=== PATIENT | female | born 1970 | race Caucasian/White ===

== ENCOUNTER → 2016-03-08 | Outpatient (CLI) | payer OTHER ==
--- NOTE | 2016-03-08 12:18 | REPMRS ---
Patient History The patient states she had a clinical breast exam in 2015.Patient had first child at age 38. No known family history of cancer. Digital Mammo Screening Bilat: March 08, 2016 - Exam #: [id number] Bilateral CC and MLO view(s) were taken. Technologist: Yvette Johnson, Technologist No prior studies available for comparison. FINDINGS: There are scattered fibroglandular densities. There is no evidence of dominant mass, architectural distortion, or clustered microcalcification typical of malignancy. ASSESSMENT: BI-RADS/ACR category 1 mammogram. Negative. Recommendation Routine screening mammogram of both breasts in 1 year (for women over age 40). This mammogram was interpreted with the aid of an FDA-approved computer-aided dectection system. Electronically Signed By: Alexandro Cruz MD 03/08/16 [id number]
== END ==
LOC: M RAD 11:34
PROVIDERS: ATTEND Advanced Practice Midwife
DX: Z12.31 Encounter for screening mammogram for malignant neoplasm of breast (principal)

== ENCOUNTER → 2016-07-04 | Outpatient (REF) | payer OTHER | LOC: M LAB REF 20:03 | PROVIDERS: ATTEND Physician Assistant | DX: N39.0 Urinary tract infection, site not specified (principal) ==

== ENCOUNTER → 2016-11-28 | Outpatient (CLI) | payer OTHER ==
--- NOTE | 2016-11-29 03:38 | REP ---
Clinical: Pelvic pain and abnormal bleeding . Technique: Transabdominal pelvic ultrasound followed by transvaginal examination for better evaluation of the endometrium and adnexa with color Doppler evaluation of the ovaries. Findings: Bladder is unremarkable and measures 10.0 x 6.0 x 8.0 cm. Normal anteverted uterus measures 7.1 x 3.6 x 4.2 cm . The endometrial complex measures 6.2 mm thickness. No discrete uterine or endometrial abnormalities are appreciated. Right ovary is normal in appearance and vascularity without evidence for torsion. Right ovary measures 2.5 x 1.9 x 2.2 cm with 1.4 cm dominant follicle ; R I = 0.59 . Left ovary not visualized. No pelvic fluid or adnexal mass lesion . Impression: 1. Essentially normal pelvic ultrasound. Left ovary not visualized. Signed by Tony White MD 11/29/2016 03:29 A
== END ==
LOC: M RAD 16:38
PROVIDERS: ATTEND Specialist
DX: N93.8 Other specified abnormal uterine and vaginal bleeding (principal)

== ENCOUNTER → 2017-01-05 | Outpatient (REF) | payer OTHER | LOC: M LAB REF 16:21 | PROVIDERS: ATTEND Physician Assistant | DX: N39.0 Urinary tract infection, site not specified (principal) ==

== ENCOUNTER → 2017-01-18 | Outpatient (REF) | payer OTHER | LOC: M LAB REF 19:12 | PROVIDERS: ATTEND Physician Assistant | DX: R30.0 Dysuria (principal) ==

== ENCOUNTER → 2017-02-17 | Outpatient (REF) | payer OTHER | LOC: M LAB REF 13:50 | DX: N39.0 Urinary tract infection, site not specified (principal) ==

== ENCOUNTER → 2017-04-11 | Outpatient (REF) | payer OTHER ==
[2017-04-11 16:15] LABS: CHLAMYDIA DNA AMPLIFICATION NEGATIVE (NEGATIVE); GC DNA AMPLIFICATION NEGATIVE (NEGATIVE)
== END ==
LOC: M LAB REF 12:59
DX: Z11.3 Encounter for screening for infections with a predominantly sexual mode of transmission (principal)

== ENCOUNTER → 2017-04-11 | Outpatient (CLI) | payer OTHER ==
[2017-04-12 10:58] LABS: HEPATITIS B SURFACE ANTIGEN NEGATIVE (NEGATIVE)
[2017-04-12 11:11] LABS: HEPATITIS B CORE ANTIBODY IGM NEGATIVE (NEGATIVE)
[2017-04-12 11:23] LABS: HIV 1&2 SCREEN CENTAUR NEGATIVE (NEGATIVE)
[2017-04-12 11:24] LABS: HEPATITIS A ANTIBODY IGM NEGATIVE (NEGATIVE)
[2017-04-14 00:06] LABS: HSV IgM TYPES 1&2 <0.91 Ratio (0.00-0.90); HSV TYPE I IgG SPECIFIC <0.91 index (0.00-0.90); HSV TYPE II IgG SPECIFIC <0.91 index (0.00-0.90)
== END ==
LOC: M SMT 10:56
DX: Z11.3 Encounter for screening for infections with a predominantly sexual mode of transmission (principal)
CPT/HCPCS: 87340

== ENCOUNTER → 2018-03-07 | Outpatient (REF) | payer OTHER ==
[2018-03-07 12:11] LABS: ALBUMIN 3.5 GM/DL (3.2-5.2); ALT/SGPT 22 U/L (12-78); BILIRUBIN,TOTAL 0.2 MG/DL (0.2-1.0); BLOOD UREA NITROGEN 18 MG/DL (7-18); CALCIUM LEVEL 8.6 MG/DL (8.5-10.1); CARBON DIOXIDE LEVEL 28 MEQ/L (21-32); CHLORIDE LEVEL 106 MEQ/L (98-107); CHOLESTEROL LEVEL 237 MG/DL (<200); CHOLESTEROL RISK RATIO 3.246 (<5); CREATININE FOR GFR 0.74 MG/DL (0.55-1.30); GLOMERULAR FILTRATION RATE > 60.0 (>58); GLUCOSE, FASTING 43 MG/DL (70-100); HDL CHOLESTEROL 73 MG/DL (>40); IRON (FE) 58 UG/DL (50-170); LDL CHOLESTEROL 133 MG/DL (<100); NON-HDL-C 164 MG/DL; POTASSIUM SERUM 4.2 MEQ/L (3.5-5.1); SODIUM LEVEL 140 MEQ/L (136-145); TRIGLYCERIDES LEVEL 157 MG/DL (<150)
[2018-03-07 12:17] LABS: TOTAL 25(OH) VITAMIN D 15.9 NG/ML (30.0-100.0)
[2018-03-07 12:18] LABS: VITAMIN B12 LEVEL 674 PG/ML (247-911)
[2018-03-07 12:27] LABS: HEMOGLOBIN A1c 5.7 %
[2018-03-07 12:57] LABS: HIV 1&2 SCREEN CENTAUR NEGATIVE (NEGATIVE)
[2018-03-07 13:11] LABS: CHLAMYDIA DNA AMPLIFICATION NEGATIVE (NEGATIVE); GC DNA AMPLIFICATION NEGATIVE (NEGATIVE)
[2018-03-12 00:06] LABS: VITAMIN A, RETINOL LEVEL 45.3 ug/dL (20.1-62.0); VITAMIN E(ALPHA TOCOPHEROL) 11.9 mg/L (7.0-25.1); VITAMIN E(GAMMA TOCOPHEROL) 1.6 mg/L (0.5-5.5); VITAMIN K1 0.4 ng/mL (0.13-1.88)
== END ==
LOC: M SFHCPLAZ 09:38
PROVIDERS: ATTEND Family Medicine
DX: Z20.2 Contact with and (suspected) exposure to infections with a predominantly sexual mode of transmission (principal); Z98.84 Bariatric surgery status; Z13.1 Encounter for screening for diabetes mellitus; Z13.220 Encounter for screening for lipoid disorders

== ENCOUNTER → 2018-06-21 | Outpatient (REF) | payer OTHER ==
[2018-06-27 14:11] LABS: HPV HYBRID CAPTURE II Positive (Negative)
== END ==
LOC: M LAB REF 16:19
PROVIDERS: ATTEND Advanced Practice Midwife
DX: Z12.4 Encounter for screening for malignant neoplasm of cervix (principal)

== ENCOUNTER → 2018-06-21 | Outpatient (REF) | payer OTHER ==
[2018-06-22 14:48] LABS: CHLAMYDIA DNA AMPLIFICATION NEGATIVE (NEGATIVE); GC DNA AMPLIFICATION NEGATIVE (NEGATIVE)
== END ==
LOC: M LAB REF 12:46
PROVIDERS: ATTEND Advanced Practice Midwife
DX: Z11.3 Encounter for screening for infections with a predominantly sexual mode of transmission (principal)

== ENCOUNTER → 2018-07-02 | Outpatient (CLI) | payer OTHER ==
[2018-07-02 17:18] LABS: HCG, SERUM QUALITATIVE NEGATIVE (NEGATIVE)
[2018-07-02 17:35] LABS: FOLLICLE STIMULATING HORMONE 10.5 mIU/mL; FREE T4 0.71 NG/DL (0.76-1.46); LUTEINIZING HORMONE 8.6 mIU/mL
--- NOTE | 2018-07-03 03:53 | REP ---
Clinical: Menorrhagia . Technique: Transabdominal pelvic ultrasound with color Doppler evaluation of the ovaries. Comparison: 11/28/2016 Findings: Bladder is unremarkable and measures approximately 7.5 x 4.0 x 4.5 cm . Normal anteverted uterus measures 9.6 x 4.1 x 5.3 cm . The endometrial complex measures 8.4 mm thickness. No discrete uterine or endometrial abnormalities are appreciated. Bilateral ovaries are normal in appearance and vascularity without evidence for torsion. Right ovary measures 2.8 x 1.6 x 2.3 cm with 2.0 cm physiologic cyst ; R I = 0.58 . Left ovary measures 3.5 x 1.9 x 2.3 cm ; R I = 0.63 . No pelvic fluid or adnexal mass lesion . Impression: 1. Relatively normal anteverted uterus without obvious abnormality. 2. 2.0 cm presumed physiologic right ovarian cyst. If warranted consider reevaluation in 4-6 weeks to evaluate for resolution. Electronically Signed by Tony White MD 07/03/2018 03:44 A
--- NOTE | 2018-07-03 08:37 | REPMRS ---
Patient History No known family history of cancer.The patient states she had a clinical breast exam in June 2018. denied. Digital Mammo Screening Bilat: July 02, 2018 - Exam #: [id number] Bilateral CC and MLO view(s) were taken. Technologist: Shobha Mei, Technologist Prior study comparison: March 08, 2016, bilateral digital mammo screening bilat performed at [facility]. FINDINGS: There are scattered fibroglandular densities. There has been no change in the appearance of the mammogram from the prior studies. There is a mild amount of scattered fibroglandular density which is fairly symmetric. There is no interval development of dominant mass, architectural distortion, or clustered microcalcification suggestive of malignancy. 3-D tomosynthesis shows no additional findings. Assessment: BI-RADS/ACR category 1 mammogram. Negative Mammogram. Recommendation Routine screening mammogram of both breasts in 1 year (for women over age 40). This patient's Lifetime Breast Cancer RIsk is estimated at 13.0 %. This mammogram was interpreted with the aid of an FDA-approved computer-aided dectection system. Electronically Signed By: Alexandro Cruz MD 07/03/18 0836
== END ==
LOC: M RAD 16:15
PROVIDERS: ATTEND Advanced Practice Midwife
DX: Z12.31 Encounter for screening mammogram for malignant neoplasm of breast (principal); N92.4 Excessive bleeding in the premenopausal period

== ENCOUNTER → 2018-07-30 | Outpatient (REF) | payer OTHER | LOC: M LAB REF 19:55 | PROVIDERS: ATTEND Advanced Practice Midwife | DX: N92.4 Excessive bleeding in the premenopausal period (principal) ==

== ENCOUNTER → 2019-07-19 | Outpatient (CLI) | payer OTHER ==
--- NOTE | 2019-07-19 11:04 | REPMRS ---
Patient History The patient states she had a clinical breast exam in June 2019. No known family history of cancer. Digital Woman Screen Mammo: July 19, 2019 - Exam #: [id number] Bilateral CC and MLO view(s) were taken. Technologist: Lupe Chun Technologist Prior study comparison: July 02, 2018, bilateral digital mammo screening bilat, performed at [facility]. March 08, 2016, bilateral digital mammo screening bilat, performed at [facility]. FINDINGS: There are scattered fibroglandular densities. The Volpara volumetric breast density category is:B. There has been no change in the appearance of the mammogram from the prior studies. There is a mild amount of scattered fibroglandular density which is fairly symmetric. There is no interval development of dominant mass, architectural distortion, or grouped microcalcification suggestive of malignancy. 3-D tomosynthesis shows no additional findings. Assessment: BI-RADS/ACR category 1 mammogram. Negative Mammogram. Recommendation Routine screening mammogram of both breasts in 1 year (for women over age 40). This patient's Lifetime Breast Cancer Risk is estimated at 12.9 %. This mammogram was interpreted with the aid of an FDA-approved computer-aided dectection system. Electronically Signed By: Alexandro Cruz MD 07/19/19 [id number]
== END ==
LOC: M WHC 08:36
PROVIDERS: ATTEND Nurse Practitioner Women's Health
DX: Z12.31 Encounter for screening mammogram for malignant neoplasm of breast (principal)

== ENCOUNTER → 2019-07-19 | Outpatient (REF) | payer OTHER | LOC: M SFHCWAGY 17:41 | PROVIDERS: ATTEND Nurse Practitioner Women's Health | DX: Z12.4 Encounter for screening for malignant neoplasm of cervix (principal) ==

== ENCOUNTER → 2019-09-30 | Outpatient (REF) | payer OTHER ==
[2019-11-13 16:10] LABS: ALBUMIN 3.5 GM/DL (3.2-5.2); ALT/SGPT 22 U/L (12-78); BILIRUBIN,TOTAL 0.2 MG/DL (0.2-1.0); BLOOD UREA NITROGEN 18 MG/DL (7-18); CARBON DIOXIDE LEVEL 28 MEQ/L (21-32); CHLORIDE LEVEL 110 MEQ/L (98-107); CHOLESTEROL LEVEL 275 MG/DL (<200); CREATININE FOR GFR 1.03 MG/DL (0.55-1.30); GLOMERULAR FILTRATION RATE > 60.0 (>58); GLUCOSE, FASTING 91 MG/DL (70-100); HDL CHOLESTEROL 65 MG/DL (>40); LDL CHOLESTEROL 168 MG/DL (<100); NON-HDL-C 210 MG/DL; POTASSIUM SERUM 4.8 MEQ/L (3.5-5.1); SODIUM LEVEL 143 MEQ/L (136-145); TOTAL PROTEIN 7.4 GM/DL (6.4-8.2); TRIGLYCERIDES LEVEL 211 MG/DL (<150)
[2019-11-13 16:11] LABS: HEMOGLOBIN A1c 5.5 %
== END ==
LOC: M SFHCPLAZ 12:05
PROVIDERS: ATTEND Physician Assistant
DX: Z13.29 Encounter for screening for other suspected endocrine disorder (principal); Z13.220 Encounter for screening for lipoid disorders

== ENCOUNTER → 2019-10-17 | Outpatient (REF) | payer OTHER | LOC: M WUC 19:04 | PROVIDERS: ATTEND Physician Assistant | DX: R30.0 Dysuria (principal) ==

== ENCOUNTER → 2020-02-20 | Outpatient (CLI) | payer OTHER ==
[2020-02-20 15:57] LABS: APPEARANCE, URINE HAZY (CLEAR); BACTERIA, URINE AUTO NEGATIVE (NEGATIVE); BILIRUBIN, URINE AUTO NEGATIVE (NEGATIVE); BLOOD, URINE BLOOD NEGATIVE (NEGATIVE); COLOR, URINE YELLOW (YELLOW); GLUCOSE, URINE (UA) AUTO NEGATIVE (NEGATIVE); KETONE, URINE AUTO TRACE mg/dL (NEGATIVE); LEUKOCYTE ESTERASE, URINE AUTO NEGATIVE (NEGATIVE); MUCUS, URINE SMALL (NEGATIVE); NITRITE, URINE AUTO NEGATIVE (NEGATIVE); PROTEIN, URINE AUTO NEGATIVE (NEGATIVE); RBC, URINE AUTO 2 /HPF (0-3); SQUAMOUS EPITHELIAL CELL UR AU 7 /HPF (0-6); UROBILINOGEN, URINE AUTO 0.2 mg/dL (0.0-2.0); WBC, URINE AUTO 2 /HPF (0-3)
[2020-02-20 16:03] LABS: BASO % 0.6 % (0.0-1.0); EOS # 0.2 10^3/uL (0.0-0.5); EOS % 2.7 % (0.0-3.0); HEMATOCRIT 40.3 % (36.0-47.0); HEMOGLOBIN 12.5 g/dl (12.0-15.5); LYMPH # 2.4 10^3/uL (1.5-5.0); MEAN CORPUSCULAR HEMOGLOBIN 28.8 pg (27.0-33.0); MEAN CORPUSCULAR VOLUME 92.9 fl (80.0-96.0); MONO # 0.5 10^3/uL (0.0-0.8); MONO % 7.6 % (0.0-5.0); NEUTROPHILS # 3.5 10^3/uL (1.5-8.5); NEUTROPHILS % 52.8 % (36.0-66.0); PLATELET COUNT, AUTOMATED 335 10^3/uL (150-450); RED BLOOD COUNT 4.34 10^6/uL (4.00-5.40); WHITE BLOOD COUNT 6.6 10^3/uL (4.0-10.0)
[2020-02-20 16:34] LABS: CREATININE,RANDOM URINE 90.8 MG/DL
[2020-02-20 16:36] LABS: ALBUMIN 3.5 GM/DL (3.2-5.2); ALT/SGPT 34 U/L (12-78); BILIRUBIN,TOTAL 0.2 MG/DL (0.2-1.0); BLOOD UREA NITROGEN 24 MG/DL (7-18); CALCIUM LEVEL 8.9 MG/DL (8.5-10.1); CARBON DIOXIDE LEVEL 28 MEQ/L (21-32); CHLORIDE LEVEL 106 MEQ/L (98-107); CHOLESTEROL LEVEL 187 MG/DL (<200); CHOLESTEROL RISK RATIO 2.968 (<5); CREATININE FOR GFR 0.75 MG/DL (0.55-1.30); GLOMERULAR FILTRATION RATE > 60.0 (>58); GLUCOSE, FASTING 85 MG/DL (70-100); HDL CHOLESTEROL 63 MG/DL (>40); LDL CHOLESTEROL 106 MG/DL (<100); NON-HDL-C 124 MG/DL; POTASSIUM SERUM 4.2 MEQ/L (3.5-5.1); SODIUM LEVEL 139 MEQ/L (136-145); TOTAL PROTEIN 6.8 GM/DL (6.4-8.2); TRIGLYCERIDES LEVEL 88 MG/DL (<150)
[2020-02-20 16:57] LABS: HEMOGLOBIN A1c 5.5 %
== END ==
LOC: M WUC 14:14
PROVIDERS: ATTEND Nurse Practitioner Family
DX: Z52.4 Kidney donor (principal)

== ENCOUNTER → 2020-02-23 | Outpatient (REF) | payer OTHER ==
[2020-02-24 09:57] LABS: MALB URINE SIEMENS < 5.0 MG/L; URINE TOTAL PROTEIN 10.7 MG/DL (0-12)
[2020-02-24 19:48] LABS: MAU 24HR URINE 6.2 MG/24HR (0.0-30.0); MAU/MINUTE 4.3 MCG/MIN (0.0-20.0); TOTAL PROTEIN 24 HOUR URINE 133.7 MG/24HR (50-150); TOTAL VOLUME, URINE 1250 ML
== END ==
LOC: M LAB REF 02-22 08:45
PROVIDERS: ATTEND Nurse Practitioner Family
DX: Z52.4 Kidney donor (principal)

== ENCOUNTER → 2020-08-24 | Outpatient (REF) | payer OTHER | LOC: M LAB REF 19:07 | PROVIDERS: ATTEND Physician Assistant | DX: N39.0 Urinary tract infection, site not specified (principal) ==

== ENCOUNTER → 2020-11-03 | Outpatient (CLI) | payer OTHER ==
[2020-11-03 10:44] LABS: HEMATOCRIT 43.5 % (36.0-47.0); HEMOGLOBIN 14.4 g/dl (12.0-15.5); MEAN CORPUSCULAR HGB CONC 33.1 g/dl (32.0-36.5); MEAN CORPUSCULAR VOLUME 99.8 fl (80.0-96.0); PLATELET COUNT, AUTOMATED 269 10^3/uL (150-450); RED BLOOD COUNT 4.36 10^6/uL (4.00-5.40); WHITE BLOOD COUNT 5.9 10^3/uL (4.0-10.0)
[2020-11-03 11:20] LABS: ALBUMIN 3.3 GM/DL (3.2-5.2); ALT/SGPT 28 U/L (12-78); BILIRUBIN,TOTAL 0.4 MG/DL (0.2-1.0); BLOOD UREA NITROGEN 21 MG/DL (7-18); CALCIUM LEVEL 8.6 MG/DL (8.5-10.1); CARBON DIOXIDE LEVEL 29 MEQ/L (21-32); CHLORIDE LEVEL 108 MEQ/L (98-107); CHOLESTEROL LEVEL 214 MG/DL (<200); CHOLESTEROL RISK RATIO 2.891 (<5); CREATININE FOR GFR 0.85 MG/DL (0.55-1.30); FOLATE 18.3 NG/ML; FREE T4 0.77 NG/DL (0.76-1.46); GLOMERULAR FILTRATION RATE > 60.0 (>51); GLUCOSE, FASTING 86 MG/DL (70-100); HDL CHOLESTEROL 74 MG/DL (>40); IRON (FE) 318 UG/DL (50-170); LDL CHOLESTEROL 124 MG/DL (<100); NON-HDL-C 140 MG/DL; POTASSIUM SERUM 4.3 MEQ/L (3.5-5.1); SODIUM LEVEL 142 MEQ/L (136-145); TOTAL 25(OH) VITAMIN D 23.5 NG/ML (30.0-100.0); TOTAL PROTEIN 6.6 GM/DL (6.4-8.2); TRIGLYCERIDES LEVEL 82 MG/DL (<150); VITAMIN B12 LEVEL 802 PG/ML
[2020-11-03 13:25] LABS: HEMOGLOBIN A1c 5.6 %
== END ==
LOC: M PLALAB 07:59
PROVIDERS: ATTEND Physician Assistant
DX: R73.03 Prediabetes (principal); L65.9 Nonscarring hair loss, unspecified; E78.2 Mixed hyperlipidemia; Z98.84 Bariatric surgery status

== ENCOUNTER → 2021-12-07 | Outpatient (CLI) | payer OTHER ==
[2021-12-07 11:42] LABS: HEMOGLOBIN A1c 5.6 %
[2021-12-07 11:48] LABS: ALBUMIN 3.3 GM/DL (3.2-5.2); ALT/SGPT 22 U/L (12-78); BILIRUBIN,TOTAL 0.3 MG/DL (0.2-1.0); BLOOD UREA NITROGEN 16 MG/DL (7-18); CALCIUM LEVEL 8.9 MG/DL (8.5-10.1); CARBON DIOXIDE LEVEL 29 MEQ/L (21-32); CHLORIDE LEVEL 107 MEQ/L (98-107); CHOLESTEROL LEVEL 193 MG/DL (<200); CHOLESTEROL RISK RATIO 3.163 (<5); CREATININE FOR GFR 0.76 MG/DL (0.55-1.30); FERRITIN 14 NG/ML (8-252); GLOMERULAR FILTRATION RATE > 60.0 (>51); GLUCOSE, FASTING 93 MG/DL (70-100); HDL CHOLESTEROL 61 MG/DL (>40); IRON (FE) 55 UG/DL (50-170); LDL CHOLESTEROL 111 MG/DL (<100); NON-HDL-C 132 MG/DL; PERCENT SATURATION 15.8 % (13.2-45.0); POTASSIUM SERUM 4.7 MEQ/L (3.5-5.1); SODIUM LEVEL 140 MEQ/L (136-145); TOTAL IRON BINDING CAPACITY 349 UG/DL (250-450); TOTAL PROTEIN 6.6 GM/DL (6.4-8.2); TRIGLYCERIDES LEVEL 105 MG/DL (<150)
[2021-12-07 12:32] LABS: TOTAL 25(OH) VITAMIN D 23.2 NG/ML (30.0-100.0); VITAMIN B12 LEVEL 520 PG/ML (247-911)
== END ==
LOC: M PLALAB 09:54
PROVIDERS: ATTEND Nurse Practitioner Family
DX: R73.03 Prediabetes (principal); E78.2 Mixed hyperlipidemia; E55.9 Vitamin D deficiency, unspecified; Z98.84 Bariatric surgery status

== ENCOUNTER → 2022-08-09 | Outpatient (CLI) | payer OTHER ==
[2022-08-09 15:57] LABS: BASO # 0.1 10^3/uL (0.0-0.2); BASO % 0.7 % (0.0-1.0); EOS # 0.2 10^3/uL (0.0-0.5); EOS % 2.8 % (0.0-3.0); HEMOGLOBIN 13.6 g/dl (12.0-15.5); LYMPH # 2.8 10^3/uL (1.5-5.0); LYMPH % 39.4 % (24.0-44.0); MEAN CORPUSCULAR HEMOGLOBIN 30.6 pg (27.0-33.0); MEAN CORPUSCULAR HGB CONC 32.4 g/dl (32.0-36.5); MEAN CORPUSCULAR VOLUME 94.4 fl (80.0-96.0); MONO # 0.5 10^3/uL (0.0-0.8); MONO % 7.1 % (2.0-8.0); NEUTROPHILS # 3.6 10^3/uL (1.5-8.5); NEUTROPHILS % 49.9 % (36.0-66.0); PLATELET COUNT, AUTOMATED 310 10^3/uL (150-450); RED BLOOD COUNT 4.45 10^6/uL (4.00-5.40); WHITE BLOOD COUNT 7.2 10^3/uL (4.0-10.0)
[2022-08-09 16:04] LABS: ALBUMIN 3.7 G/DL (3.2-5.2); BILIRUBIN,TOTAL 0.2 MG/DL (0.3-1.2); CHOLESTEROL RISK RATIO 3.04 (<5); CREATININE FOR GFR 1.27 MG/DL (0.55-1.30); FREE T4 0.76 NG/DL (0.89-1.76); GLOMERULAR FILTRATION RATE 47.2 (>51); HDL CHOLESTEROL 63.8 MG/DL (>40); LDL CHOLESTEROL 98.8 MG/DL (<100); NON-HDL-C 130.2 MG/DL; POTASSIUM SERUM 4.2 MMOL/L (3.5-5.1); TOTAL PROTEIN 6.8 G/DL (5.7-8.2)
[2022-08-09 16:05] LABS: THYROID STIMULATING HORMONE 3.103 uIU/ML (0.55-4.78)
[2022-08-09 16:06] LABS: TOTAL 25(OH) VITAMIN D 24.4 NG/ML (20.0-100.0)
[2022-08-09 17:53] LABS: HEMOGLOBIN A1c 5.5 % (4.0-6.0)
== END ==
LOC: M PLALAB 13:47
PROVIDERS: ATTEND Nurse Practitioner Family
DX: R73.03 Prediabetes (principal); E78.2 Mixed hyperlipidemia; E55.9 Vitamin D deficiency, unspecified; R53.83 Other fatigue; Z98.84 Bariatric surgery status

== ENCOUNTER → 2022-11-28 | Outpatient (CLI) | payer OTHER | LOC: M WHC 12:37 | PROVIDERS: ATTEND Nurse Practitioner Family | DX: Z12.31 Encounter for screening mammogram for malignant neoplasm of breast (principal) ==

== ENCOUNTER → 2022-11-28 | Outpatient (REF) | payer OTHER | LOC: M SFHCWAGY 17:53 | PROVIDERS: ATTEND Nurse Practitioner Family | DX: Z12.4 Encounter for screening for malignant neoplasm of cervix (principal) ==

== ENCOUNTER → 2023-06-19 | Outpatient (CLI) | payer OTHER | LOC: M RAD 15:19 | PROVIDERS: ATTEND Physician Assistant Medical | DX: I80.9 Phlebitis and thrombophlebitis of unspecified site (principal) ==

== ENCOUNTER → 2023-09-27 | Outpatient (CLI) | payer OTHER ==
[2023-09-27 14:51] LABS: C REACTIVE PROTEIN QUANTITATIV < 0.40 MG/DL (<1.0)
[2023-09-27 14:53] LABS: ALBUMIN 3.5 G/DL (3.2-5.2); ALKALINE PHOSPHATASE 82 U/L (46-116); ALT/SGPT 24 U/L (7.0-40); AST/SGOT 15 U/L (<34); BILIRUBIN,TOTAL 0.3 MG/DL (0.3-1.2); BLOOD UREA NITROGEN 19 MG/DL (9-23); CALCIUM LEVEL 9.1 MG/DL (8.5-10.1); CARBON DIOXIDE LEVEL 29 MMOL/L (20-31); CHLORIDE LEVEL 108 MMOL/L (98-107); CHOLESTEROL LEVEL 230 MG/DL (<200); CHOLESTEROL RISK RATIO 3.89 (<5); CREATININE FOR GFR 0.82 MG/DL (0.55-1.30); GLOMERULAR FILTRATION RATE > 60.0 (>51); GLUCOSE, FASTING 89 MG/DL (60-100); IRON (FE) 45 UG/DL (50-170); PERCENT SATURATION 11.6 % (13.2-45.0); POTASSIUM SERUM 4.5 MMOL/L (3.5-5.1); SODIUM LEVEL 142 MMOL/L (136-145); TOTAL IRON BINDING CAPACITY 389 UG/DL (250-425); TOTAL PROTEIN 7.2 G/DL (5.7-8.2); TRIGLYCERIDES LEVEL 105 MG/DL (<150)
[2023-09-27 14:57] LABS: FREE T4 0.89 NG/DL (0.89-1.76); VITAMIN B12 LEVEL 423 PG/ML (211-911)
[2023-09-27 14:58] LABS: THYROID STIMULATING HORMONE 2.256 uIU/ML (0.55-4.78)
[2023-09-27 15:07] LABS: HEMOGLOBIN A1c 5.8 % (4.0-6.0)
[2023-09-27 15:22] LABS: HIV 1&2 SCREEN NEGATIVE (NEGATIVE)
[2023-09-27 16:01] LABS: Trichomonas vaginalis (AMP) NOT DETECTED (NEGATIVE)
[2023-09-27 16:26] LABS: GC DNA AMPLIFICATION NEGATIVE (NEGATIVE)
[2023-09-28 12:32] LABS: ANA SCREEN, IFA NEGATIVE (NEGATIVE)
== END ==
LOC: M PLALAB 10:37
PROVIDERS: ATTEND Nurse Practitioner Family
DX: Z11.3 Encounter for screening for infections with a predominantly sexual mode of transmission (principal); E78.2 Mixed hyperlipidemia; R73.03 Prediabetes; E55.9 Vitamin D deficiency, unspecified; E03.8 Other specified hypothyroidism; M25.50 Pain in unspecified joint; Z98.84 Bariatric surgery status

== ENCOUNTER → 2023-12-04 | Outpatient (CLI) | payer OTHER | LOC: M WHC 15:01 | PROVIDERS: ATTEND Nurse Practitioner Family | DX: Z12.31 Encounter for screening mammogram for malignant neoplasm of breast (principal); R92.313 Mammographic fatty tissue density, bilateral breasts ==

== ENCOUNTER → 2024-03-28 | Outpatient (CLI) | payer OTHER ==
[2024-03-28 10:20] LABS: BASO # 0.1 10^3/uL (0.0-0.2); BASO % 1.5 % (0.0-1.0); EOS # 0.2 10^3/uL (0.0-0.5); EOS % 3.1 % (0.0-3.0); HEMATOCRIT 39.2 % (36.0-47.0); HEMOGLOBIN 12.3 g/dl (12.0-15.5); LYMPH % 36.1 % (24.0-44.0); MEAN CORPUSCULAR HEMOGLOBIN 27.6 pg (27.0-33.0); MEAN CORPUSCULAR HGB CONC 31.4 g/dl (32.0-36.5); MEAN CORPUSCULAR VOLUME 87.9 fl (80.0-96.0); MONO # 0.4 10^3/uL (0.0-0.8); MONO % 6.7 % (2.0-8.0); NEUTROPHILS # 2.9 10^3/uL (1.5-8.5); NEUTROPHILS % 52.4 % (36.0-66.0); PLATELET COUNT, AUTOMATED 346 10^3/uL (150-450); RED BLOOD COUNT 4.46 10^6/uL (4.00-5.40); WHITE BLOOD COUNT 5.5 10^3/uL (4.0-10.0)
[2024-03-28 11:00] LABS: ALBUMIN 3.3 G/DL (3.2-5.2); ALKALINE PHOSPHATASE 83 U/L (35-104); ALT/SGPT 24 U/L (7.0-40); AST/SGOT 17 U/L (<34); BILIRUBIN,TOTAL 0.4 MG/DL (0.3-1.2); BLOOD UREA NITROGEN 20 MG/DL (9-23); CALCIUM LEVEL 9.1 MG/DL (8.5-10.1); CARBON DIOXIDE LEVEL 26 MMOL/L (20-31); CHLORIDE LEVEL 108 MMOL/L (98-107); CHOLESTEROL LEVEL 221 MG/DL (<200); CHOLESTEROL RISK RATIO 3.51 (<5); CREATININE FOR GFR 0.83 MG/DL (0.55-1.30); FREE T4 0.93 NG/DL (0.89-1.76); GLOMERULAR FILTRATION RATE > 60.0 (>51); GLUCOSE, FASTING 99 MG/DL (60-100); HDL CHOLESTEROL 62.8 MG/DL (>40); LDL CHOLESTEROL 139.8 MG/DL (<100); NON-HDL-C 158.2 MG/DL; POTASSIUM SERUM 4.6 MMOL/L (3.5-5.1); SODIUM LEVEL 143 MMOL/L (136-145); TRIGLYCERIDES LEVEL 92 MG/DL (<150)
[2024-03-28 11:01] LABS: THYROID STIMULATING HORMONE 1.915 uIU/ML (0.55-4.78)
[2024-03-29 14:22] LABS: ANA SCREEN, IFA NEGATIVE (NEGATIVE)
[2024-03-29 22:47] LABS: CYCLIC CITRULLINATED PEPTIDE < 16 UNITS (<20)
== END ==
LOC: M PLALAB 07:35
PROVIDERS: ATTEND Nurse Practitioner Family
DX: E78.2 Mixed hyperlipidemia (principal)

== ENCOUNTER → 2024-09-19 | Outpatient (CLI) | payer OTHER | LOC: M PLAIMG 08:06 | DX: M54.12 Radiculopathy, cervical region (principal); M47.814 Spondylosis without myelopathy or radiculopathy, thoracic region ==

== ENCOUNTER → 2024-11-07 | Outpatient (REF) | payer OTHER ==
[2024-11-07 16:20] LABS: C REACTIVE PROTEIN QUANTITATIV < 0.50 MG/DL (<1.0)
[2024-11-07 16:24] LABS: TOTAL 25(OH) VITAMIN D 26.3 NG/ML (20.0-100.0)
== END ==
LOC: M SFHCRHEU 10:54
PROVIDERS: ATTEND Internal Medicine
DX: Z87.39 Personal history of other diseases of the musculoskeletal system and connective tissue (principal); R53.82 Chronic fatigue, unspecified

== ENCOUNTER → 2024-11-28 | Outpatient (CLI) | payer OTHER | LOC: M SLEEP HO 11:28 | PROVIDERS: ATTEND Internal Medicine | DX: G47.33 Obstructive sleep apnea (adult) (pediatric) (principal); R53.82 Chronic fatigue, unspecified ==

== ENCOUNTER → 2024-12-05 | Outpatient (REF) | payer OTHER ==
[2024-12-05 13:22] LABS: Trichomonas vaginalis (AMP) NOT DETECTED (NEGATIVE)
== END ==
LOC: M SFHCWAGY 09:50
PROVIDERS: ATTEND Nurse Practitioner Family
DX: Z11.3 Encounter for screening for infections with a predominantly sexual mode of transmission (principal)

== ENCOUNTER → 2024-12-05 | Outpatient (CLI) | payer OTHER | LOC: M WHC 08:17 | PROVIDERS: ATTEND Nurse Practitioner Family | DX: O92.6 Galactorrhea (principal); Z12.31 Encounter for screening mammogram for malignant neoplasm of breast; D24.2 Benign neoplasm of left breast ==

== ENCOUNTER → 2024-12-06 | Outpatient (CLI) | payer OTHER ==
[2024-12-06 14:49] LABS: PROLACTIN 4.07 NG/ML
[2024-12-06 14:51] LABS: FREE T4 0.90 NG/DL (0.89-1.76)
[2024-12-06 15:13] LABS: HIV 1&2 SCREEN NEGATIVE (NEGATIVE)
[2024-12-06 15:22] LABS: HEPATITIS C VIRUS ABY INDEX < 0.02 INDEX (<0.8)
[2024-12-06 15:25] LABS: GC DNA AMPLIFICATION NEGATIVE (NEGATIVE)
== END ==
LOC: M PLALAB 11:41
PROVIDERS: ATTEND Nurse Practitioner Family
DX: O92.6 Galactorrhea (principal); Z11.3 Encounter for screening for infections with a predominantly sexual mode of transmission

== ENCOUNTER → 2024-12-25 | Outpatient (CLI) | payer OTHER ==
[2024-12-25 07:43] VITALS: TEMP 98.5
[2024-12-25 13:54] VITALS: BP 112/80; O2SAT 97
== END ==
LOC: M WHCPRO 07:34
PROVIDERS: ATTEND Nurse Practitioner Family
DX: O92.6 Galactorrhea (principal)

== ENCOUNTER → 2025-01-29 | Outpatient (CLI) | payer OTHER ==
[2025-01-29 11:01] LABS: BASO # 0.0 10^3/uL (0.0-0.2); BASO % 0.7 % (0.0-1.0); EOS # 0.1 10^3/uL (0.0-0.5); EOS % 2.1 % (0.0-3.0); LYMPH # 1.9 10^3/uL (1.5-5.0); LYMPH % 34.6 % (24.0-44.0); MONO # 0.5 10^3/uL (0.0-0.8); MONO % 8.0 % (2.0-8.0); NEUTROPHILS # 3.0 10^3/uL (1.5-8.5); NEUTROPHILS % 54.4 % (36.0-66.0); PLATELET COUNT, AUTOMATED 307 10^3/uL (150-450)
[2025-01-29 11:33] LABS: IRON (FE) 83 UG/DL (50-170); PERCENT SATURATION 24.1 % (13.2-45.0)
[2025-01-29 11:34] LABS: ALT/SGPT 23 U/L (7.0-40); AST/SGOT 16 U/L (<34); CALCIUM LEVEL 9.4 MG/DL (8.5-10.1); CARBON DIOXIDE LEVEL 28 MMOL/L (20-31); CHLORIDE LEVEL 106 MMOL/L (98-107); CHOLESTEROL LEVEL 209 MG/DL (<200); CHOLESTEROL RISK RATIO 3.72 (<5); CREATININE FOR GFR 0.75 MG/DL (0.55-1.30); GLOMERULAR FILTRATION RATE > 90.0 (>51); LDL CHOLESTEROL 131.7 MG/DL (<100); MAGNESIUM LEVEL 2.0 MG/DL (1.8-2.4); NON-HDL-C 152.9 MG/DL; POTASSIUM SERUM 4.8 MMOL/L (3.5-5.1); SODIUM LEVEL 144 MMOL/L (136-145); TOTAL 25(OH) VITAMIN D 71.6 NG/ML (20.0-100.0); TRIGLYCERIDES LEVEL 106 MG/DL (<150); VITAMIN B12 LEVEL 1189 PG/ML (211-911)
[2025-01-29 11:35] LABS: FREE T4 1.01 NG/DL (0.89-1.76)
[2025-01-29 11:49] LABS: ESTIMATED AVERAGE GLUCOSE 103.0 MG/DL (60-110)
== END ==
LOC: M PLALAB 07:38
PROVIDERS: ATTEND Nurse Practitioner Family
DX: E78.2 Mixed hyperlipidemia (principal); E03.8 Other specified hypothyroidism; Z98.84 Bariatric surgery status; E55.9 Vitamin D deficiency, unspecified; R73.03 Prediabetes

== ENCOUNTER → 2025-02-19 | Outpatient (CLI) | payer OTHER ==
[~2025-02-19] MED LIST: ATOR1TAB19 PO; CITA20TA6 PO; SEMA2PEN SQ; THERTAB52 PO
== END ==
LOC: M PLALAB 11:41
DX: Z01.818 Encounter for other preprocedural examination (principal)

== ENCOUNTER → 2025-02-19 | Outpatient (CLI) | payer OTHER ==
[2025-02-19 13:55] LABS: BASO # 0.1 10^3/uL (0.0-0.2); BASO % 0.8 % (0.0-1.0); EOS # 0.1 10^3/uL (0.0-0.5); EOS % 1.3 % (0.0-3.0); LYMPH # 2.3 10^3/uL (1.5-5.0); LYMPH % 29.0 % (24.0-44.0); MONO # 0.5 10^3/uL (0.0-0.8); MONO % 6.8 % (2.0-8.0); NEUTROPHILS # 4.8 10^3/uL (1.5-8.5); NEUTROPHILS % 61.8 % (36.0-66.0); PLATELET COUNT, AUTOMATED 317 10^3/uL (150-450)
[2025-02-19 14:03] LABS: FREE T4 0.93 NG/DL (0.89-1.76)
[2025-02-19 14:04] LABS: ALT/SGPT 26.0 U/L (7.0-40); AST/SGOT 22.0 U/L (<34); CALCIUM LEVEL 9.4 MG/DL (8.5-10.1); CARBON DIOXIDE LEVEL 28.0 MMOL/L (20-31); CHLORIDE LEVEL 106.0 MMOL/L (98-107); CREATININE FOR GFR 0.89 MG/DL (0.55-1.30); GLOMERULAR FILTRATION RATE 77.0 (>51); POTASSIUM SERUM 4.8 MMOL/L (3.5-5.1); SODIUM LEVEL 142.0 MMOL/L (136-145)
[2025-02-19 14:07] LABS: TOTAL 25(OH) VITAMIN D 65.8 NG/ML (20.0-100.0)
[2025-02-19 14:19] LABS: ESTIMATED AVERAGE GLUCOSE 105.0 MG/DL (60-110)
== END ==
LOC: M PLALAB 11:37
PROVIDERS: ATTEND Nurse Practitioner Family
DX: E03.8 Other specified hypothyroidism (principal); E78.2 Mixed hyperlipidemia; R73.03 Prediabetes; E55.9 Vitamin D deficiency, unspecified